=== PATIENT | male | born 1950 | race African-American/Black ===

== ENCOUNTER 2020-11-26 09:00 | Outpatient (CLI) | payer MEDICARE | END 2020-11-26 09:01 | disposition home or self-care (01) | LOC: RAD 09:00 | PROVIDERS: ATTEND Thoracic Surgery (Cardiothoracic Vascular Surgery) | DX: J86.9 Pyothorax without fistula (principal); J90 Pleural effusion, not elsewhere classified; J98.11 Atelectasis; R91.8 Other nonspecific abnormal finding of lung field | CPT/HCPCS: 71046 ==